=== PATIENT | female | born 1995 | race Caucasian/White ===

== ENCOUNTER 2020-04-06 18:23 | Inpatient (IN) ==
[~2020-04-06 18:23] MED LIST: CeFAZolin 2,000 MG/50 ML BAG IVPB STA; Famotidine 20 MG/2 ML VIAL IVP ONE; Famotidine 20 MG/2 ML VIAL ONE; Metoclopramide 10 MG/2 ML VIAL IVP ONE; Metoclopramide 10 MG/2 ML VIAL ONE; Oxytocin 20 units/ LR 1000 mL 20 UNIT/1,000 ML BAG IVC ONE; Ringers Solution, Lactated 1,000 ML IVC ONE; Ringers Solution, Lactated 1,000 ML ONE
[2020-04-06] MEDS ORDERED: Ringers Solution, Lactated 1,000 ML ONE (18:24)
[2020-04-06] MEDS ORDERED: Oxytocin 20 units/ LR 1000 mL 40 UNIT/2,000 ML BAG IVC ONE (18:25)
[2020-04-06] MEDS ORDERED: Azithromycin 500 MG in 0.9 % Sodium Chloride 250 ML IVPB STA (18:26)
[2020-04-06 18:33] LABS: Basophils % 0.3 %; Eosinophils # 0.1 K/mcL (0.0-0.6); Eosinophils % 0.9 %; Hematocrit 32.3 % (35.3-44.9); Hemoglobin 10.2 g/dL (11.5-15.4); Immature Granulocytes % 1.3 % (0-4); Lymphocytes % 16.9 %; Mean Corpuscular HGB Conc 31.6 g/dL (31.6-35.5); Mean Corpuscular Hemoglobin 26.2 pg (28.0-33.3); Mean Corpuscular Volume 82.8 fL (83.0-100.0); Mean Platelet Volume 12.5 fL (9.4-12.4); Monocytes # 0.9 K/mcL (0.0-1.3); Neutrophils # 8.5 K/mcL (1.6-8.9); Platelet Count 172 K/mcL (140-400); Red Cell Distribution Width 16.4 % (11.5-14.5); Segmented Neutrophils % 72.6 %; White Blood Count 11.7 K/mcL (4.3-11.1)
[2020-04-06] MEDS ORDERED: *HR* Morphine Sulfate/PF 10 MG/10 ML AMPUL ONE (18:36)
[2020-04-06] MEDS ORDERED: *HR* FentaNYL (PF) 100 MCG/2 ML VIAL ONE (18:36)
[2020-04-06] MEDS ORDERED: Ondansetron 4 MG/2 ML VIAL ONE (18:36)
[2020-04-06] MEDS ORDERED: *HR* Oxytocin 10 UNIT/ML VIAL IM ONE (18:36)
[2020-04-06] MEDS ORDERED: EPHEDrine 50 MG/ML VIAL ONE (18:36)
[2020-04-06 18:38] LABS: Bacteria,Urine Few per hpf (None-Few); Bilirubin,Urine Negative (Negative); Blood,Urine Trace (Negative); Clarity,Urine Clear (Clear); Color,Urine Colorless (Yellow); Glucose,Urine (UA) Normal (Normal); Ketones,Urine Negative (Negative); Leukocyte Esterase,Urine Negative (Negative); Nitrite,Urine Negative (Negative); PH,Urine 7.5 pH Units (5.0-8.0); Protein,Urine 200 mg/dL (Neg-Trace); RBC,Urine 0-3 per hpf (0-3); Specific Gravity,Urine 1.009 (1.010-1.025); Squamous Epithelial Cell,Urine Few per hpf (None-Few); Urobilinogen,Urine Normal (Normal); WBC,Urine 0-3 per hpf (0-3)
[2020-04-06 18:52] LABS: Platelet Estimate Normal (Normal); Reactive Lymphocytes Present (Not Present)
[2020-04-06 18:54] LABS: Alanine Aminotransferase 6 Units/L (7-52); Aspartate Amino Transferase 15 Units/L (13-39); BUN/Creatinine Ratio 19 (6-26); Blood Urea Nitrogen 8 mg/dL (6-20); Lactate Dehydrogenase 188 Units/L (140-271); Uric Acid 4.7 mg/dL (2.3-7.6); eGFR For African Americans > 60 (> 60); eGFR For Non-African Americans > 60 (> 60)
[2020-04-06 19:10] LABS: Protein/Creatinine Ratio,Urine 9.32 mg/mg (0.00-0.20)
[2020-04-06] MEDS ORDERED: Acetaminophen IV 1,000 MG/100 ML INFUS..BTL ONE (19:12)
[2020-04-06] MEDS ORDERED: *HR* OxyCODONE/APAP 5/325 TABLET PO PRN ×2 (20:20→21:03)
[2020-04-06] MEDS ORDERED: Naloxone 0.4 MG/ML INJ IVP PRN (20:20)
[2020-04-06] MEDS ORDERED: *HR* Promethazine 25 MG/ML VIAL IVP PRN ×2 (20:20→23:40)
[2020-04-06] MEDS ORDERED: *HR* HYDROmorphone (PF) 1 MG/ML SYRINGE IVP PRN (20:20)
[2020-04-06] MEDS ORDERED: Ondansetron 4 MG/2 ML VIAL IVP ONE (20:20)
[2020-04-06 20:23] LABS: Amphetamine Screen,Urine Negative ng/mL (Cutoff=1000); Barbiturate Screen,Urine Negative ng/mL (Cutoff=200); Benzodiazepines Screen,Urine Negative ng/mL (Cutoff=200); Cannabinoid Screen,Urine Negative ng/mL (Cutoff = 50); Cocaine Screen,Urine Negative ng/mL (Cutoff= 300); Opiate Screen,Urine Negative ng/mL (Cutoff=300); Phencyclidine Screen,Urine Negative ng/mL (Cutoff=25)
[2020-04-06 20:28] LABS: Bilirubin,Urine Negative (Negative); Blood,Urine Negative (Negative); Clarity,Urine Clear (Clear); Color,Urine Colorless (Yellow); Glucose,Urine (UA) Normal (Normal); Ketones,Urine Negative (Negative); Leukocyte Esterase,Urine Negative (Negative); Nitrite,Urine Negative (Negative); PH,Urine 7.5 pH Units (5.0-8.0); Protein,Urine 200 mg/dL (Neg-Trace); RBC,Urine 0-3 per hpf (0-3); Specific Gravity,Urine 1.008 (1.010-1.025); Squamous Epithelial Cell,Urine Few per hpf (None-Few); Urobilinogen,Urine Normal (Normal); WBC,Urine 0-3 per hpf (0-3)
[2020-04-06] MEDS ORDERED: Ondansetron 4 MG/2 ML VIAL IVP PRN (21:03)
[2020-04-06] MEDS ORDERED: Simethicone 80 MG TAB.CHEW PO PRN (21:03)
[2020-04-06] MEDS ORDERED: Sennosides 8.6 MG TABLET PO PRN (21:03)
[2020-04-06] MEDS ORDERED: Rho Immune Globulin 1,500 UNIT SYRINGE IM ONE (21:03)
[2020-04-06] MEDS ORDERED: Metoclopramide 10 MG/2 ML VIAL IVP PRN (21:03)
[2020-04-06] MEDS ORDERED: Ringers Solution, Lactated 1,000 ML IVC SCH (21:15)
[2020-04-06] MEDS ORDERED: Oxytocin 20 units/ LR 1000 mL 20 UNIT/1,000 ML BAG IVC SCH (21:15)
[2020-04-06] MEDS ORDERED: Calcium Gluconate 1,000 MG/10 ML VIAL IVP PRN (22:20)
[2020-04-06] MEDS ORDERED: Magnesium Sulf 20 gm/SW 500mL 20 GM/500 ML IV.SOLN IVC SCH (22:30)
[2020-04-06] MEDS ORDERED: *HR* Labetalol 20 MG/4 ML SYRINGE IVP ONE (22:41)
[2020-04-06] MEDS: NIFEdipine XL (24 HR) 30 MG TAB.ER.24 PO SCH (23:10)
[2020-04-07] MEDS: metroNIDAZOLE 500 MG TABLET PO SCH ×3 (08:15→20:59)
[2020-04-07] MEDS: Prenatal Vit/FA 1 EACH TABLET PO SCH (08:15)
[2020-04-07] MEDS: NIFEdipine XL (24 HR) 30 MG TAB.ER.24 PO SCH ×2 (08:15→21:00)
[2020-04-07] MEDS: cephALEXin 500 MG CAPSULE PO SCH ×3 (08:16→20:59)
[2020-04-07 10:38] LABS: Basophils % 0.3 %; Eosinophils # 0.1 K/mcL (0.0-0.6); Eosinophils % 0.7 %; Hematocrit 27.9 % (35.3-44.9); Hemoglobin 8.9 g/dL (11.5-15.4); Immature Granulocytes % 0.5 % (0-4); Lymphocytes # 1.6 K/mcL (0.6-4.6); Lymphocytes % 13.5 %; Mean Corpuscular HGB Conc 31.9 g/dL (31.6-35.5); Mean Corpuscular Hemoglobin 26.6 pg (28.0-33.3); Mean Corpuscular Volume 83.5 fL (83.0-100.0); Mean Platelet Volume 12.5 fL (9.4-12.4); Monocytes # 0.9 K/mcL (0.0-1.3); Monocytes % 7.6 %; Neutrophils # 9.2 K/mcL (1.6-8.9); Nucleated Red Blood Cells 0.2 /100 WBC (0); Platelet Count 175 K/mcL (140-400); Red Blood Count 3.34 M/mcL (3.82-4.97); Red Cell Distribution Width 16.5 % (11.5-14.5); Segmented Neutrophils % 77.4 %; White Blood Count 11.9 K/mcL (4.3-11.1)
[2020-04-07 10:58] LABS: Alanine Aminotransferase 7 Units/L (7-52); Aspartate Amino Transferase 16 Units/L (13-39); BUN/Creatinine Ratio 12 (6-26); Blood Urea Nitrogen 7 mg/dL (6-20); Lactate Dehydrogenase 209 Units/L (140-271); Uric Acid 5.1 mg/dL (2.3-7.6); eGFR For African Americans > 60 (> 60); eGFR For Non-African Americans > 60 (> 60)
[2020-04-07] MEDS: Ibuprofen 600 MG TABLET PO PRN ×2 (14:03→21:00)
[2020-04-07] MEDS: Nicotine 14 MG PATCH.TD24 TD SCH (15:20)
[2020-04-08] MEDS: metroNIDAZOLE 500 MG TABLET PO SCH ×3 (08:19→20:06)
[2020-04-08] MEDS: Prenatal Vit/FA 1 EACH TABLET PO SCH (08:19)
[2020-04-08] MEDS: cephALEXin 500 MG CAPSULE PO SCH ×3 (08:19→20:06)
[2020-04-08] MEDS: NIFEdipine XL (24 HR) 60 MG TAB.ER.24 PO SCH (08:19)
[2020-04-08] MEDS: Ibuprofen 600 MG TABLET PO PRN ×2 (08:20→22:47)
[2020-04-08] MEDS ORDERED: carvediloL 6.25 MG TABLET PO SCH (13:37)
[2020-04-08] MEDS: Nicotine 14 MG PATCH.TD24 TD SCH (17:15)
[2020-04-09] MEDS: Nicotine 14 MG PATCH.TD24 TD SCH (08:20)
[2020-04-09] MEDS: Ibuprofen 600 MG TABLET PO PRN (08:21)
[2020-04-09] MEDS: NIFEdipine XL (24 HR) 60 MG TAB.ER.24 PO SCH (08:21)
[2020-04-09] MEDS: Prenatal Vit/FA 1 EACH TABLET PO SCH (08:21)
[2020-04-09 09:21] VITALS: BP 126/90
== END 2020-04-09 11:03 | disposition home or self-care (01) | DRG 540 ==
LOC: 1NENULAB → 1NENUOBS 04-07 00:03
PROVIDERS: ADMIT Student in an Organized Health Care Education/Training Program; ATTEND Student in an Organized Health Care Education/Training Program